=== PATIENT | female | born 1950 | race Caucasian/White ===

== ENCOUNTER 2018-08-17 16:09 | Emergency (ER) | payer SELFPAY ==
[2018-08-17] MEDS ORDERED: Acetaminophen 325 MG Tab PO ONE (16:51)
[2018-08-17] MEDS ORDERED: Baclofen 10 MG Tab PO ONE (16:52)
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
--- NOTE | 2018-08-17 18:05 | CRLCT ---
INDICATION: Sided muscle stiffness, headache, trauma TECHNIQUE: CT cervical spine without contrast. COMPARISON: None FINDINGS: Vertebral alignment: Alignment is normal. Vertebrae: There are no fractures or suspicious bony lesions. Discs and facet joints: Disc space narrowing C4-C5 and C5-C6. Extraspinal findings: Prevertebral soft tissues, visualized airway, and visualized lungs are unremarkable. IMPRESSION: Atraumatic appearance of the cervical spine. Degenerative changes C4 through C6. Dictated by Reagan Franco MD @ 08/17/2018 6:03:50 PM Please note that all CT scans at this facility use dose modulation, iterative reconstruction, and/or weight-based dosing when appropriate to reduce radiation dose to as low as reasonably achievable. Dictated by: Reagan Franco MD @ 08/17/2018 18:03:57 (Electronically Signed)
== END 2018-08-17 18:31 | disposition home or self-care (01) ==
LOC: JP.ED 16:09
DX: M62.830 Muscle spasm of back (principal); V43.62XA Car passenger injured in collision with other type car in traffic accident, initial encounter; Z88.0 Allergy status to penicillin; Z91.018 Allergy to other foods; Z79.899 Other long term (current) drug therapy
CPT/HCPCS: 70450; 72125; 99284; A9270